=== PATIENT | female | born 1970 | race Caucasian/White ===

== ENCOUNTER 2017-03-18 17:11 | Emergency (ER) | payer SELFPAY ==
--- NOTE | 2017-03-18 17:44 | Emergency Department Record ---
History of Present Illness - General Chief Complaint: Difficulty Breathing Stated Complaint: RICHARD,NAUSEA Time Seen by Provider: 03/18/17 17:43 Source: Patient Mode of Arrival: Ambulatory Limitations: No limitations - History of Present Illness Initial Comments: The patient is here due to developing SOB about an hour ago. She was taking a nap and then woke up and suddenly felt short of breath. She also developed urinary urgency and pelvic cramping and also a feeling that her kidneys hurt. Those issues have resolved and her RICHARD is much improved. Additionally she did have anxiety during the episode but denied any CP or upper back pain. The patient does have a hx of anxiety and has had anxiety attacks similar to this in the past. She denies any recent cough, colds, fever, or infections. She also denies any CP with exertion or chest discomfort at rest. The patient's only cardiac risk factor is tobacco use. MD Complaint: Shortness of breath Onset/Timin -: Minutes(s) Consistency: Constant Improves With: Nothing Worsens With: Nothing Context: Anxiety, Recent URI Treatments Prior to Arrival: None - Related Data Home Oxygen Therapy: No Home Medications Medication Instructions Recorded Confirmed Last Taken Cholecalciferol (Vitamin D3) 5,000 unit PO DAILY 03/18/17 03/18/17 03/18/17 [Vitamin D3] Clonazepam [Clonazepam] 1 tab PO ASDIR 03/18/17 03/18/17 03/18/17 Duloxetine HCl [Cymbalta] 20 mg PO DAILY 03/18/17 03/18/17 03/18/17 Lisinopril/Hydrochlorothiazide 1 tab PO DAILY 03/18/17 03/18/17 03/18/17 [Lisinopril-Hctz 10-12.5 mg Tab] Ropinirole HCl [Requip] 0.5 mg PO DAILY 03/18/17 03/18/17 03/18/17 Allergies Allergy/AdvReac Type Severity Reaction Status Date / Time amoxicillin AdvReac NAUSEA Verified 03/18/17 17:33 Travel Screening - Travel/Exposure Within Last 30 Days Have you traveled within the last 30 days?: No - Travel/Exposure Within Last Year Have you traveled outside the [place] in the last year?: No - Additonal Travel Details Have you been exposed to anyone with a communicable illness?: No - Travel Symptoms Symptom Screening: None Review of Systems Constitutional: Denies: Chills, Fever Eyes: Denies: Eye discharge ENT: Denies: Congestion Respiratory: Denies: Cough, Hemoptysis Cardiovascular: Denies: Arrhythmia, Chest pain Past Medical History - SOCIAL HISTORY Smoking Status: Current every day smoker Alcohol Use: Occasional Drug Use: None - RESPIRATORY Hx Respiratory Disorders: No - CARDIOVASCULAR Hx Cardio Disorders: No - NEURO Hx Neuro Disorders: Yes Hx Headaches: Yes - GI Hx GI Disorders: No - Hx Genitourinary Disorders: No - ENDOCRINE Hx Endocrine Disorders: No - MUSCULOSKELETAL Hx Musculoskeletal Disorders: No - PSYCH Hx Psych Problems: Yes Hx Anxiety: Yes Hx Depression: Yes - HEMATOLOGY/ONCOLOGY Hx Hematology/Oncology Disorders: No Family Medical History Any Significant Family History?: Yes Hx Anxiety: Mother Hx Cancer: Father Hx Depression: Mother Hx Heart Disease: Mother, Grandparents Hx HTN: Grandparents Hx Stroke: Grandparents Physical Exam - General General Appearance: Alert, Oriented x3, Cooperative, No acute distress - Head Head exam: Atraumatic, Normocephalic, Normal inspection - Eye Eye exam: Normal appearance, PERRL, EOMI - ENT Throat exam: Normal inspection. negative: Tonsillar erythema, Tonsillar exudate - Neck Neck exam: Normal inspection, Full ROM. negative: Tenderness - Respiratory Respiratory exam: Normal lung sounds bilaterally. negative: Respiratory distress - Cardiovascular Cardiovascular Exam: Regular rate, Normal rhythm, Normal heart sounds - GI/Abdominal GI/Abdominal exam: Soft, Normal bowel sounds. negative: Tenderness - Extremities Extremities exam: Normal inspection, Full ROM, Normal capillary refill. negative: Tenderness - Back Back exam: Reports: Normal inspection. Denies: Paraspinal tenderness, Vertebral tenderness - Neurological Neurological exam: Alert, Normal gait, Oriented X3. negative: Abnormal gait, Motor sensory deficit - Psychiatric Psychiatric exam: negative: Agitated, Anxious Course Vital Signs 03/18/17 17:37 Temperature 97.8 F Pulse Rate 105 H Respiratory 18 Rate Blood Pressure 129/86 Pulse Ox 98 - Reevaluation(s) Reevaluation #1: The patient is doing a lot better at this time. She denies any CP or SOB or anxiety. She is resting comfortably and feels a lot better. 03/18/17 18:30 Reevaluation #2: The patient is doing well at this time. Her care will be turned over to Dr. Fernandez due to shift change. 03/18/17 18:50 Medical Decision Making - Data Complexity MDM Data: Labs Ordered and/or Reviewed, X-Ray Ordered and/or Reviewed, EKG Ordered and/or Reviewed - Lab Data Result diagrams: 03/18/17 18:00 03/18/17 18:00 - EKG Data -: EKG Interpreted by Me EKG: No Acute Changes, Normal EKG - Radiology Data Radiology results: Report reviewed (CXR: Neg Per Rad.) Disposition Forms: Patient Portal Access Quality - Quality Measures Quality Measures: N/A - Blood Pressure Screening View Details: Yes Does Patient Have Any of the Following: No Blood Pressure Classification: Pre-Hypertensive BP Reading Systolic Measurement: 129 Diastolic Measurement: 86 Screening for High Blood Pressure: < Pre-Hypertensive BP, F/U Documented > [ G8950] Pre-Hypertensive Follow-up Interventions: Referral to alternative/primary care provider.
[2017-03-18] MEDS ORDERED: LORAZEPAM 0.5 MG TABLET PO ONE (17:50)
[2017-03-18 18:08] LABS: BASO % 0.2 % (0-6); EOS % 1.7 % (0-6); GRAN % 66.7 % (47-80); HEMATOCRIT 40.8 % (35.0-47.0); HEMOGLOBIN 13.8 gm/dl (11.6-16.0); LYMPH % 26.6 % (16-45); MEAN CELL VOLUME 83.8 fl (81-97); MEAN CORPUSCULAR HEMOGLOBIN 28.3 pg (27-33); MEAN CORPUSCULAR HGB CONC 33.8 g/dl (32-36); MEAN PLATELET VOLUME 9.9 fl (7.4-10.4); MONO % 4.8 % (0-9); PLATELET COUNT 246 K/uL (130-400); RED BLOOD COUNT 4.87 M/uL (3.80-5.40); RED CELL DISTRIBUTION WIDTH 13.7 % (11.5-14.5); WHITE BLOOD COUNT W/O DIFF 12.9 K/uL (4.2-12.2)
[2017-03-18 18:20] LABS: BLOOD UREA NITROGEN 15 mg/dL (6-20); CREATININE 0.6 mg/dL (0.5-0.9); EST GLOMERULAR FILTRATION RATE > 60 mL/min
[2017-03-18 18:23] LABS: GLUCOSE,RANDOM 128 mg/dL (74-109)
[2017-03-18 18:25] LABS: URINE APPEARANCE SL CLOUDY; URINE BILIRUBIN NEGATIVE (NEGATIVE); URINE BLOOD LARGE (NEGATIVE); URINE COLOR YELLOW; URINE GLUCOSE (UA) NEGATIVE (NEGATIVE); URINE KETONE NEGATIVE (NEGATIVE); URINE LEUKOCYTE ESTERASE NEGATIVE (NEGATIVE); URINE NITRITE NEGATIVE (NEGATIVE); URINE PROTEIN NEGATIVE (NEGATIVE); URINE UROBILINOGEN 0.2 E.U./dL (0.20 - 1.00)
[2017-03-18 18:26] LABS: CREATINE PHOSPHOKINASE 73 U/L (26-192)
[2017-03-18 18:27] LABS: CKMB 1.8 ng/mL (<3.77)
[2017-03-18] MEDS ORDERED: POTASSIUM CHLORIDE 20 MEQ TABLET PO ONE (18:29)
[2017-03-18] MEDS ORDERED: 0.9 % SODIUM CHLORIDE 1,000 ML BAG IV ONE (18:34)
[2017-03-18 18:38] LABS: URINE BACTERIA NONE SEEN; URINE EPITHELIAL CELLS 0 - 2 (FEW); URINE WBC NONE SEEN (0-2/hpf)
--- NOTE | 2017-03-18 20:03 | Emergency Department Record ---
History of Present Illness - General Chief Complaint: Difficulty Breathing Stated Complaint: RICHARD,NAUSEA Time Seen by Provider: 03/18/17 17:43 Source: Patient Mode of Arrival: Ambulatory Limitations: No limitations - History of Present Illness Onset/Timin -: Minutes(s) Consistency: Constant Improves With: Nothing Worsens With: Nothing Context: Anxiety, Recent URI Treatments Prior to Arrival: None - Related Data Home Oxygen Therapy: No Home Medications Medication Instructions Recorded Confirmed Last Taken Cholecalciferol (Vitamin D3) 5,000 unit PO DAILY 03/18/17 03/18/17 03/18/17 [Vitamin D3] Clonazepam [Clonazepam] 1 tab PO ASDIR 03/18/17 03/18/17 03/18/17 Duloxetine HCl [Cymbalta] 20 mg PO DAILY 03/18/17 03/18/17 03/18/17 Lisinopril/Hydrochlorothiazide 1 tab PO DAILY 03/18/17 03/18/17 03/18/17 [Lisinopril-Hctz 10-12.5 mg Tab] Ropinirole HCl [Requip] 0.5 mg PO DAILY 03/18/17 03/18/17 03/18/17 Allergies Allergy/AdvReac Type Severity Reaction Status Date / Time amoxicillin AdvReac NAUSEA Verified 03/18/17 17:33 Travel Screening - Travel/Exposure Within Last 30 Days Have you traveled within the last 30 days?: No - Travel/Exposure Within Last Year Have you traveled outside the [place] in the last year?: No - Additonal Travel Details Have you been exposed to anyone with a communicable illness?: No - Travel Symptoms Symptom Screening: None Review of Systems Constitutional: Denies: Chills, Fever Eyes: Denies: Eye discharge ENT: Denies: Congestion Respiratory: Denies: Cough, Hemoptysis Cardiovascular: Denies: Arrhythmia, Chest pain Past Medical History - SOCIAL HISTORY Smoking Status: Current every day smoker Alcohol Use: Occasional Drug Use: None - RESPIRATORY Hx Respiratory Disorders: No - CARDIOVASCULAR Hx Cardio Disorders: No - NEURO Hx Neuro Disorders: Yes Hx Headaches: Yes - GI Hx GI Disorders: No - Hx Genitourinary Disorders: No - ENDOCRINE Hx Endocrine Disorders: No - MUSCULOSKELETAL Hx Musculoskeletal Disorders: No - PSYCH Hx Psych Problems: Yes Hx Anxiety: Yes Hx Depression: Yes - HEMATOLOGY/ONCOLOGY Hx Hematology/Oncology Disorders: No Family Medical History Any Significant Family History?: Yes Hx Anxiety: Mother Hx Cancer: Father Hx Depression: Mother Hx Heart Disease: Mother, Grandparents Hx HTN: Grandparents Hx Stroke: Grandparents Physical Exam - General Limitations: No limitations Course Vital Signs 03/18/17 03/18/17 03/18/17 17:37 18:30 19:04 Temperature 97.8 F Pulse Rate 105 H Pulse Rate [ 93 H 101 H Pulse Ox Probe] Respiratory 18 18 18 Rate Blood Pressure 129/86 Blood Pressure 109/64 120/79 [Left Arm] Pulse Ox 98 97 97 - Reevaluation(s) Reevaluation #1: 03/18/17 20:00 Labs reviewed, D-dimer (16.87) and WBC (12.9) are elevated, labs are otherwise grossly unremarkable for an acute process. CTA Chest: No PE, NO dissection, no acute process in the chest identified. Patient and her SO were updated on all results, patient reports that she is feeling much improved and denies any needs at this time. Plan for repeat Troponin was discussed with the patient and will draw at 3 hours. 03/18/17 20:01 Reevaluation #2: 03/18/17 21:30 Repeat Troponin appears negative for myocardial damage, and the patient appears stable for discharge at this time. Medical Decision Making - Lab Data Result diagrams: 03/18/17 18:00 03/18/17 18:00 Lab Results 03/18/17 03/18/17 03/18/17 Range/Units 17:49 18:00 18:00 WBC 12.9 H (4.2-12.2) K/uL RBC 4.87 (3.80-5.40) M/uL Hgb 13.8 (11.6-16.0) gm/dl Hct 40.8 (35.0-47.0) % MCV 83.8 (81-97) fl MCH 28.3 (27-33) pg MCHC 33.8 (32-36) g/dl RDW 13.7 (11.5-14.5) % Plt Count 246 (130-400) K/uL MPV 9.9 (7.4-10.4) fl Gran % 66.7 (47-80) % Lymphocytes % 26.6 (16-45) % Monocytes % 4.8 (0-9) % Eosinophils % 1.7 (0-6) % Basophils % 0.2 (0-6) % D-Dimer 16.87 H (0-0.59) mg/L FEU Sodium (136-145) mmol/L Potassium (3.4-4.5) mmol/L Chloride (98-107) mmol/L Carbon Dioxide (22-29) mmol/L Anion Gap (7-16) BUN (6-20) mg/dL Creatinine (0.5-0.9) mg/dL Estimated GFR mL/min Random Glucose (74-109) mg/dL Calcium (8.6-10.0) mg/dL Creatine Kinase (26-192) U/L CK-MB (CK-2) (<3.77) ng/mL Troponin T (0-0.010) ng/mL Urine Color Urine Appearance Urine pH (5.0-8.0) Ur Specific [place] (1.002-1.030) Urine Protein (NEGATIVE) Urine Glucose (UA) (NEGATIVE) Urine Ketones (NEGATIVE) Urine Blood (NEGATIVE) Urine Nitrite (NEGATIVE) Urine Bilirubin (NEGATIVE) Urine Urobilinogen (0.20 - 1.00) E.U./dL Ur Leukocyte Esterase (NEGATIVE) Urine RBC (NONE SEEN) Urine WBC (0-2/hpf) Ur Epithelial Cells (FEW) Urine Bacteria Urine HCG, Qual Negative (NEGATIVE) 03/18/17 03/18/17 Range/Units 18:00 18:22 WBC (4.2-12.2) K/uL RBC (3.80-5.40) M/uL Hgb (11.6-16.0) gm/dl Hct (35.0-47.0) % MCV (81-97) fl MCH (27-33) pg MCHC (32-36) g/dl RDW (11.5-14.5) % Plt Count (130-400) K/uL MPV (7.4-10.4) fl Gran % (47-80) % Lymphocytes % (16-45) % Monocytes % (0-9) % Eosinophils % (0-6) % Basophils % (0-6) % D-Dimer (0-0.59) mg/L FEU Sodium 139 (136-145) mmol/L Potassium 3.3 L (3.4-4.5) mmol/L Chloride 100 (98-107) mmol/L Carbon Dioxide 25.0 (22-29) mmol/L Anion Gap 14.0 (7-16) BUN 15 (6-20) mg/dL Creatinine 0.6 (0.5-0.9) mg/dL Estimated GFR > 60 mL/min Random Glucose 128 H (74-109) mg/dL Calcium 9.3 (8.6-10.0) mg/dL Creatine Kinase 73 (26-192) U/L CK-MB (CK-2) 1.8 (<3.77) ng/mL Troponin T < 0.010 (0-0.010) ng/mL Urine Color Yellow Urine Appearance Sl cloudy Urine pH 5.5 (5.0-8.0) Ur Specific [place] 1.010 (1.002-1.030) Urine Protein Negative (NEGATIVE) Urine Glucose (UA) Negative (NEGATIVE) Urine Ketones Negative (NEGATIVE) Urine Blood Large H (NEGATIVE) Urine Nitrite Negative (NEGATIVE) Urine Bilirubin Negative (NEGATIVE) Urine Urobilinogen 0.2 (0.20 - 1.00) E.U./dL Ur Leukocyte Esterase Negative (NEGATIVE) Urine RBC 7 - 10 (NONE SEEN) Urine WBC None seen (0-2/hpf) Ur Epithelial Cells 0 - 2 (FEW) Urine Bacteria None seen Urine HCG, Qual (NEGATIVE) Disposition Disposition: Discharge Clinical Impression: Chest pain Qualifiers: Chest pain type: unspecified Qualified Code(s): R07.9 - Chest pain, unspecified Disposition: Home, Self-Care Condition: (2) Stable Instructions: Chest Pain (ED) Additional Instructions: Return to ED if your symptoms worsen or if you have any concerns. Follow-up with your family doctor in 1-3 days as directed. Forms: Patient Portal Access Time of Disposition: 21:31 Quality - Quality Measures Quality Measures: N/A - Blood Pressure Screening Does Patient Have Any of the Following: No Blood Pressure Classification: Pre-Hypertensive BP Reading Systolic Measurement: 129 Diastolic Measurement: 86 Screening for High Blood Pressure: < Pre-Hypertensive BP, F/U Documented > [ G8950] Pre-Hypertensive Follow-up Interventions: Referral to alternative/primary care provider.
[2017-03-18] MEDS ORDERED: MAGNESIUM HYDROXIDE/AL HYDROX 30 ML, LIDOCAINE VISC 2% 200 MG PO ONE ×2 (20:14)
[2017-03-18] MEDS ORDERED: HYOSCYAMINE SULFATE ODT 0.125 MG TAB.SUBL SL ONE (21:32)
--- NOTE | 2017-03-19 10:35 | RADIOLOGY REPORT ---
EXAM: CHEST, TWO VIEWS HISTORY: PATIENT HAS COUGH TIMES ONE DAY. TECHNIQUE: Two views of the chest are provided without comparison studies. FINDINGS: The cardiomediastinal silhouette is within normal limits for size and contour. The jana appear unremarkable. There is no radiographic evidence of a focal infiltrate, pleural effusion, or pneumothorax. IMPRESSION: NO RADIOGRAPHIC EVIDENCE OF AN ACUTE INTRATHORACIC PROCESS. JOB NUMBER: [id number] MTDD
--- NOTE | 2017-03-19 10:48 | CT ANGIOGRAM REPORT ---
EXAM: CTA OF THE CHEST HISTORY: PATIENT HAS SHORTNESS OF BREATH AND ELEVATED D-DIMER. TECHNIQUE: Serial axial CTA scan of the chest was performed at 2.5 mm intervals from the thoracic inlet to the dome of the diaphragm following the intravenous administration of 75 ml of Omnipaque 350. Comparison: CT scan of the neck dated 01/10/16 is provided. FINDINGS: The thoracic inlet is unremarkable. The lung windows demonstrate no CT evidence of a focal infiltrate or pleural effusion. Linear subsegmental atelectasis and/or scarring within the left lateral lower lobe is noted. The visualized heart size and contour is within normal limits. The thoracic aorta demonstrates normal contour, caliber, and flow. There is no CTA evidence of a filling defect within the primary and secondary pulmonary vascular tree to suggest a pulmonary embolus. The chest wall is unremarkable. There is no CTA evidence of mediastinal, hilar, or axillary lymphadenopathy. Axial images through the upper abdomen demonstrate the visualized liver, pancreas, and adrenal glands to be unremarkable. Bone windows demonstrate no CTA evidence of a fracture or dislocation of the visualized osseous structures of the chest. IMPRESSION: NO CTA EVIDENCE OF AN ACUTE INTRATHORACIC PROCESS. NO CTA EVIDENCE OF A PULMONARY EMBOLUS. JOB NUMBER: [id number] MTDD
== END 2017-03-18 21:51 | disposition home or self-care (01) ==
LOC: ER 17:11
DX: R07.9 Chest pain, unspecified (principal); R06.02 Shortness of breath; R11.0 Nausea; F17.210 Nicotine dependence, cigarettes, uncomplicated
CPT/HCPCS: 99284 ×2; 82550; 85025; 82553; 80048; 81001; 81025; 84484; 85379; 71020; 71275; 93005; 93010; Q9967; J1980; J7030

== ENCOUNTER 2017-03-19 04:02 | Emergency (ER) | payer SELFPAY ==
--- NOTE | 2017-03-19 04:27 | Emergency Department Record ---
History of Present Illness - General Chief Complaint: Abdominal Pain Stated Complaint: BLOODY STOOLS Time Seen by Provider: 03/19/17 04:14 Source: Patient Mode of Arrival: Ambulatory Limitations: No limitations - History of Present Illness Initial Comments: 47 yo female returns to ED for evaluation of upper abdominal pain that began after ingesting oral potasssium while she was being evaluated for chest pain 8 hours ago. Patient reports intermittent blood in the stool as well. Patient denies vomiting symptoms but also reports intermittent blood in the stool as well. Patient denies health problems at her baseline. MD Complaint: Abdominal pain Onset/Timin -: Hour(s) Location: Diffuse Radiation: None Migration to: No migration Severity: Moderate Quality: Aching Consistency: Constant Improves With: Nothing Worsens With: Nothing - Related Data Patient : No Previous Rx's Medication Instructions Recorded Ciprofloxacin HCl [Cipro] 500 mg PO Q12HR #19 tablet 03/19/17 Metronidazole [Flagyl] 500 mg PO TID #29 tablet 03/19/17 Allergies Allergy/AdvReac Type Severity Reaction Status Date / Time amoxicillin AdvReac NAUSEA Verified 03/18/17 17:33 Travel Screening - Travel/Exposure Within Last 30 Days Have you traveled within the last 30 days?: No Review of Systems Constitutional: Denies: Chills, Fever, Malaise, Night sweats Eyes: Denies: Eye discharge, Eye pain ENT: Denies: Congestion, Ear pain, Epistaxis Respiratory: Denies: Cough, Dyspnea, Hemoptysis Cardiovascular: Denies: Chest pain, Dyspnea on exertion Endocrine: Denies: Fatigue, Heat or cold intolerance Gastrointestinal: Reports: Abdominal pain. Denies: Constipation, Nausea, Vomiting Genitourinary: Denies: Incontinence, Retention Musculoskeletal: Denies: Arthralgia, Back pain, Gout, Joint swelling Skin: Denies: Bruising, Change in color Neurological: Denies: Abnormal gait, Confusion, Headache, Seizure Psychiatric: Denies: Anxiety Hematological/Lymphatic: Denies: Anemia, Blood Clots Past Medical History - SOCIAL HISTORY Smoking Status: Current every day smoker Alcohol Use: None Drug Use: None - RESPIRATORY Hx Respiratory Disorders: No - CARDIOVASCULAR Hx Cardio Disorders: No - NEURO Hx Neuro Disorders: Yes Hx Headaches: Yes - GI Hx GI Disorders: No - Hx Genitourinary Disorders: No - ENDOCRINE Hx Endocrine Disorders: No - MUSCULOSKELETAL Hx Musculoskeletal Disorders: No - PSYCH Hx Psych Problems: Yes Hx Anxiety: Yes Hx Depression: Yes - HEMATOLOGY/ONCOLOGY Hx Hematology/Oncology Disorders: No Family Medical History Any Significant Family History?: Yes Hx Anxiety: Mother Hx Cancer: Father Hx Depression: Mother Hx Heart Disease: Mother, Grandparents Hx HTN: Grandparents Hx Stroke: Grandparents Physical Exam - General General Appearance: Alert, Oriented x3, Cooperative, Mild distress Limitations: No limitations - Head Head exam: Atraumatic, Normocephalic, Normal inspection Head exam detail: negative: Abrasion, Contusion, Myles's sign, General tenderness, Hematoma, Laceration - Eye Eye exam: Normal appearance. negative: Conjunctival injection, Periorbital swelling, Periorbital tenderness, Scleral icterus - ENT Ear exam: negative: Auricular hematoma, Auricular trauma Nasal Exam: negative: Active bleeding, Discharge, Dried blood, Foreign body Mouth exam: negative: Drooling, Laceration, Muffled voice, Tongue elevation - Neck Neck exam: Normal inspection. negative: Meningismus, Tenderness - Respiratory Respiratory exam: Normal lung sounds bilaterally. negative: Rales, Respiratory distress, Rhonchi, Stridor - Cardiovascular Cardiovascular Exam: Regular rate, Normal rhythm, Normal heart sounds - GI/Abdominal GI/Abdominal exam: Soft, Tenderness (Moderate amout TTP epigastric region, no rebound or guarding are present on examination.). negative: Rebound, Rigid - Rectal Rectal exam: Deferred - exam: Deferred - Extremities Extremities exam: Normal inspection. negative: Calf tenderness, Pedal edema, Tenderness - Back Back exam: Denies: CVA tenderness (R), CVA tenderness (L) - Neurological Neurological exam: Alert, Normal gait, Oriented X3 - Psychiatric Psychiatric exam: Normal affect, Normal mood - Skin Skin exam: Normal color. negative: Abrasion Type of lesion: negative: abrasion Course Vital Signs 03/19/17 04:08 Temperature 98.4 F Pulse Rate [ 103 H Pulse Ox Probe] Respiratory 20 Rate Blood Pressure 141/87 [Left Arm] Pulse Ox 96 - Reevaluation(s) Reevaluation #1: 03/19/17 04:34 Patient returns following chest pain evaluation and CTA of the chest with worsening epigastric abdominal pain symptoms and possible blood in the stool. Lactic acid ordered to exclude mesenteric ischemia given CTA cannot be performed following CTA chest earlier in the evening. Will administer Morphine/ zofran for her pain symptoms. Reevaluation #2: 03/19/17 05:20 Labs reviewed, WBC 12.6, Hgb 13.2 (previous 13.8), lactic acid and lipase specifically are normal. Stool occult positive. CT Abdomen and Pelvis: Focal area of colitis to the descending colon c/w diverticulitis. Patient was reassessed and updated on all results, reports that she is feeling better. I discussed admission/observation for diverticulitis treatment as the patient has been to the ED twice in 12 hours, patient declined stating that she is feeling better and would prefer to go home. Will administer Cipro and Flagyl and discharge home. Medical Decision Making - Lab Data Result diagrams: 03/19/17 04:22 03/19/17 04:22 Disposition Disposition: Discharge Clinical Impression: Diverticulitis Disposition: Home, Self-Care Condition: (2) Stable Instructions: Diverticulitis (ED), Rectal Bleeding (ED) Additional Instructions: Return to ED if your symptoms worsen or if you have any concerns. Cipro and Flagyl as directed. Follow-up with your family doctor in 3-5 days directed. Prescriptions: Ciprofloxacin HCl [Cipro] 500 mg PO Q12HR #19 tablet Metronidazole [Flagyl] 500 mg PO TID #29 tablet Forms: Patient Portal Access Time of Disposition: 05:31 Quality - Quality Measures Quality Measures: N/A - Blood Pressure Screening Does Patient Have Any of the Following: No Blood Pressure Classification: Pre-Hypertensive BP Reading Systolic Measurement: 117 Diastolic Measurement: 84 Screening for High Blood Pressure: < Pre-Hypertensive BP, F/U Documented > [ G8950] Pre-Hypertensive Follow-up Interventions: Referral to alternative/primary care provider.
[2017-03-19 04:28] LABS: BASO % 0.2 % (0-6); EOS % 0.8 % (0-6); GRAN % 75.2 % (47-80); HEMATOCRIT 38.9 % (35.0-47.0); HEMOGLOBIN 13.2 gm/dl (11.6-16.0); LYMPH % 17.5 % (16-45); MEAN CELL VOLUME 83.8 fl (81-97); MEAN CORPUSCULAR HEMOGLOBIN 28.4 pg (27-33); MEAN CORPUSCULAR HGB CONC 33.9 g/dl (32-36); MEAN PLATELET VOLUME 9.8 fl (7.4-10.4); MONO % 6.3 % (0-9); PLATELET COUNT 239 K/uL (130-400); RED BLOOD COUNT 4.64 M/uL (3.80-5.40); RED CELL DISTRIBUTION WIDTH 13.8 % (11.5-14.5); WHITE BLOOD COUNT W/O DIFF 12.6 K/uL (4.2-12.2)
[2017-03-19] MEDS: ONDANSETRON HCL IV 4 MG/2 ML VIAL IVP ONE (04:35)
[2017-03-19] MEDS: MORPHINE SULFATE 5 MG/ML PFS IVP ONE (04:35)
[2017-03-19 04:41] LABS: BLOOD UREA NITROGEN 12 mg/dL (6-20); CREATININE 0.5 mg/dL (0.5-0.9); EST GLOMERULAR FILTRATION RATE > 60 mL/min
[2017-03-19 04:42] LABS: TOTAL PROTEIN 6.8 g/dL (6.6-8.7)
[2017-03-19 04:44] LABS: GLUCOSE,RANDOM 118 mg/dL (74-109)
[2017-03-19 04:46] LABS: ALT/SGPT 9 U/L (<33); AST/SGOT 13 U/L (10.0-35.0)
[2017-03-19 04:47] LABS: ALB/GLOB RATIO 1.5 (1.1-1.8); ALBUMIN 4.1 g/dL (4.0-5.0); ALKALINE PHOSPHATASE 90 U/L (35-104); LIPASE 17 U/L (13-60)
[2017-03-19] MEDS: METRONIDAZOLE 250 MG TABLET PO ONE (05:51)
[2017-03-19] MEDS: CIPROFLOXACIN HCL 500 MG TABLET PO ONE (05:51)
--- NOTE | 2017-03-19 11:41 | CT SCAN REPORT ---
EXAM: EMERGENCY CT OF THE ABDOMEN AND PELVIS WITHOUT CONTRAST HISTORY: EPIGASTRIC ABDOMINAL PAIN WITH BLOODY STOOLS. TECHNIQUE: Axial CT scan of the abdomen and pelvis was performed without oral or IV contrast. Note, however, is made that the patient did have a CTA of the chest earlier the same day. A preliminary report was provided by [facility]. Comparison: No prior abdomen or pelvis CT with which to compare. FINDINGS: Surgical clips are seen in the gallbladder fossa consistent with prior cholecystectomy. There is faint residual contrast media present in the urinary tract apparently related to the CTA performed earlier today. No hydronephrosis or hydroureter on either side with no definite ureteral calculus seen on either side. The bladder has a somewhat thick walled appearance, but this may simply be due to incomplete distention. Evaluation of the bowel and viscera is limited by the lack of oral and IV contrast. Given this limitation, no definite hepatic, splenic, adrenal, pancreatic, or renal mass identified. There is thickening of the wall of the majority of the descending colon. Slight blurring of the adjacent pericolonic adipose tissue as well and findings are consistent with a left sided colitis. There are a couple diverticula in the adjacent sigmoid colon although no diffuse thickening of the sigmoid colon wall itself identified and the length of involvement in the descending colon appears somewhat atypical for diverticulitis. I believe the appendix is visualized as a normal caliber structure with no appendicitis evident. Minor linear fibrosis or discoid atelectasis in the left base laterally. No free intraperitoneal air or free intraperitoneal fluid identified. 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 Some degenerative change at the pubic symphysis. The uterine fundus appears somewhat prominent in size measuring about 8.3 cm in transverse x 7.5 cm in AP diameter. No obvious focal uterine mass identified. If clinically warranted, the uterus can be more fully evaluated with a follow- up pelvic ultrasound. IMPRESSION: 1. FINDINGS CONSISTENT WITH A COLITIS INVOLVING PRIMARILY THE DESCENDING COLON OF UNCERTAIN ETIOLOGY. MINOR DIVERTICULOSIS IN THE ADJACENT SIGMOID COLON, BUT FINDINGS APPEAR ATYPICAL FOR DIVERTICULITIS. 2. FAINT RESIDUAL CONTRAST MEDIA IN THE URINARY TRACT RELATED TO THE CTA OF THE CHEST PERFORMED EARLIER TODAY. 3. SOMEWHAT THICK WALLED APPEARANCE OF THE URINARY BLADDER IS NONSPECIFIC ALTHOUGH MAY SIMPLY BE DUE TO INCOMPLETE DISTENTION. 4. POSTOP CHOLECYSTECTOMY. 5. SOMEWHAT GENEROUS SIZED UTERINE FUNDUS ALTHOUGH NO DISCREET FOCAL UTERINE MASS IDENTIFIED. JOB NUMBER: [id number] MTDD
== END 2017-03-19 05:52 | disposition home or self-care (01) ==
LOC: ER 04:02
DX: K57.93 Diverticulitis of intestine, part unspecified, without perforation or abscess with bleeding (principal)
CPT/HCPCS: 99284 ×2; 96374; 96375; 83605; 83690; 85025; 80053; 82272; 74176; J2405; J2270

== ENCOUNTER 2017-04-05 17:52 | Emergency (ER) | payer SELFPAY ==
[2017-04-05] MEDS ORDERED: HYDROCODONE/APAP 5/325MG TABLET PO ONE (18:00)
[2017-04-05] MEDS ORDERED: CLINDAMYCIN 150 MG CAP PO ONE (18:01)
--- NOTE | 2017-04-05 18:07 | Emergency Department Record ---
History of Present Illness - General Chief complaint: Dental Stated complaint: TOOTH ABCESS Time Seen by Provider: 04/05/17 17:54 Source: Patient, Family Mode of Arrival: Ambulatory Limitations: No limitations - History of Present Illness Initial comments: 47 yo female presents with 2 days of right lower jaw dental pain. She has some mild swelling as well. No fevers. No neck pain or swelling. No fevers. She has had prior filling of the right lower. No trauma. No problem with swallowing. No current dentist. MD complaint: Tooth pain -: Days(s) (2) Location: Tooth # Improves with: None Worsens with: Movement (palpation) Context- Dental: History of dental caries Associated Symptoms: Toothache - Related Data Previous Rx's Medication Instructions Recorded Clindamycin HCl 300 mg PO QID #28 capsule 04/05/17 Hydrocodone/Acetaminophen [[place] 1 each PO Q8H #15 tablet 04/05/17 7.5-325 Tablet] Allergies Allergy/AdvReac Type Severity Reaction Status Date / Time amoxicillin AdvReac NAUSEA Verified 04/05/17 17:54 Review of Systems Constitutional: Denies: Chills, Fever, Malaise, Weakness Eyes: Denies: Eye discharge ENT: Reports: As per HPI, Dental pain. Denies: Congestion, Throat pain Respiratory: Denies: Cough, Dyspnea, Hemoptysis, Stridor, Wheezes Cardiovascular: Denies: Chest pain, Syncope Endocrine: Denies: Fatigue Gastrointestinal: Denies: Abdominal pain, Diarrhea, Nausea, Vomiting Genitourinary: Denies: Dysuria, Urgency Musculoskeletal: Denies: Arthralgia, Back pain, Joint swelling, Myalgia Skin: Denies: Bruising, Change in color, Rash Neurological: Denies: Confusion, Headache, Numbness, Weakness Psychiatric: Denies: Anxiety Hematological/Lymphatic: Denies: Anemia, Blood Clots, Easy bleeding, Easy bruising, Swollen glands Past Medical History - SOCIAL HISTORY Smoking Status: Current every day smoker Drug Use: None - RESPIRATORY Hx Respiratory Disorders: No - CARDIOVASCULAR Hx Cardio Disorders: No - NEURO Hx Neuro Disorders: Yes Hx Headaches: Yes - GI Hx GI Disorders: No - Hx Genitourinary Disorders: No - ENDOCRINE Hx Endocrine Disorders: No - MUSCULOSKELETAL Hx Musculoskeletal Disorders: No - PSYCH Hx Psych Problems: Yes Hx Anxiety: Yes Hx Depression: Yes - HEMATOLOGY/ONCOLOGY Hx Hematology/Oncology Disorders: No Family Medical History Hx Anxiety: Mother Hx Cancer: Father Hx Depression: Mother Hx Heart Disease: Mother, Grandparents Hx HTN: Grandparents Hx Stroke: Grandparents Physical Exam - General General Appearance: Alert, Oriented x3, Cooperative, No acute distress Limitations: No limitations - Head Head exam: Atraumatic, Normocephalic, Normal inspection - Eye Eye exam: Normal appearance. negative: Conjunctival injection, Periorbital swelling, Periorbital tenderness, Scleral icterus - ENT ENT exam: Normal exam, Mucous membranes moist Ear exam: Normal external inspection Nasal Exam: Normal inspection Mouth exam: Normal external inspection Teeth exam: Dental caries, Dental tenderness # (30), Other (No abscess at this time). negative: Fractured tooth #, Gingival enlargement Throat exam: Normal inspection. negative: Tonsillar erythema, Tonsillomegaly, R peritonsillar mass, L peritonsillar mass - Neck Neck exam: Normal inspection, Full ROM, Other (supple neck). negative: Lymphadenopathy, Tenderness - Respiratory Respiratory exam: Normal lung sounds bilaterally. negative: Respiratory distress - Cardiovascular Cardiovascular Exam: Regular rate, Normal rhythm, Normal heart sounds - Rectal Rectal exam: Deferred - exam: Deferred Course - Reevaluation(s) Reevaluation #1: 04/05/17 18:06 The patient has localized tenderness and mild swelling No visible abscess to drain Rx provided for Clindamycin and [place] She will be provided the list of local dentists 04/05/17 18:44 The heart rate remains elevated on recheck She states she feels dehydrated with little to drink last 2 days I recommend IVF, analgesia and IV antibiotic Medical Decision Making - Lab Data Result diagrams: 04/05/17 19:10 04/05/17 19:10 Disposition Disposition: Discharge Clinical Impression: Dental abscess Disposition: Home, Self-Care Condition: (1) Good Instructions: Dental Abscess (ED) Additional Instructions: Return or be seen if worse in the next 24 hours Take the antibiotics as directed Call the numbers provided for a dentist Prescriptions: Clindamycin HCl 300 mg PO QID #28 capsule Hydrocodone/Acetaminophen [[place] 7.5-325 Tablet] 1 each PO Q8H #15 tablet Forms: Patient Portal Access Time of Disposition: 18:04 Quality - Quality Measures Quality Measures: N/A - Blood Pressure Screening Does Patient Have Any of the Following: No Blood Pressure Classification: Hypertensive Reading Systolic Measurement: 145 Diastolic Measurement: 95 Screening for High Blood Pressure: < Pre-Hypertensive BP, F/U Documented > [ G8950] Pre-Hypertensive Follow-up Interventions: Referral to alternative/primary care provider.
[2017-04-05] MEDS ORDERED: CLINDAMYCIN 600MG/50ML PREMIX 600 MG/50 ML BAG IVPB ONE (18:43)
[2017-04-05] MEDS ORDERED: MORPHINE SULFATE 5 MG/ML PFS IVP ONE (18:43)
[2017-04-05] MEDS ORDERED: KETOROLAC 30 MG/ML VIAL IVP ONE (18:43)
[2017-04-05] MEDS ORDERED: 0.9 % SODIUM CHLORIDE 1,000 ML BAG IV ONE (18:43)
[2017-04-05] MEDS ORDERED: CEFTRIAXONE SODIUM 2 GM in 0.9 % SODIUM CHLORIDE 100ML 100 ML IVPB ONE (18:45)
[2017-04-05 19:16] LABS: BASO % 0.2 % (0-6); EOS % 0.3 % (0-6); HEMATOCRIT 38.6 % (35.0-47.0); HEMOGLOBIN 13.1 gm/dl (11.6-16.0); LYMPH % 13.4 % (16-45); MEAN CELL VOLUME 83.7 fl (81-97); MEAN CORPUSCULAR HEMOGLOBIN 28.4 pg (27-33); MEAN CORPUSCULAR HGB CONC 33.9 g/dl (32-36); MEAN PLATELET VOLUME 9.8 fl (7.4-10.4); MONO % 7.1 % (0-9); PLATELET COUNT 232 K/uL (130-400); RED BLOOD COUNT 4.61 M/uL (3.80-5.40); RED CELL DISTRIBUTION WIDTH 13.6 % (11.5-14.5)
[2017-04-05 19:29] LABS: BLOOD UREA NITROGEN 8 mg/dL (6-20); CREATININE 0.5 mg/dL (0.5-0.9); EST GLOMERULAR FILTRATION RATE > 60 mL/min
[2017-04-05 19:31] LABS: GLUCOSE,RANDOM 106 mg/dL (74-109)
== END 2017-04-05 20:00 | disposition home or self-care (01) ==
LOC: ER 17:52
DX: K04.7 Periapical abscess without sinus (principal); F17.210 Nicotine dependence, cigarettes, uncomplicated
CPT/HCPCS: 99284 ×2; 96365; 96375; 85025; 80048; J1885; J2270; J7030

== ENCOUNTER 2018-06-16 18:03 | Emergency (ER) | payer BC, OTHER ==
--- NOTE | 2018-06-16 18:17 | Emergency Department Record ---
History of Present Illness - General Chief Complaint: Fall Injury Stated Complaint: FELL DOWN STEP YESTERDAY/ HEADACHE,BACK PAIN Time Seen by Provider: 06/16/18 18:11 Source: Patient, Family Mode of Arrival: Ambulatory Limitations: No limitations - History of Present Illness Initial Comments: 48 yo female presents with pain after a fall downs stairs that were carpeted. The fall occurred yesterday. She was carrying a small dog and a cordless drill at the time. She hit her head. No LOC but she saw stars. She still has a headache, feels foggy with concentration, and mild nausea and dizziness. She has has neck pain. No weakness, numbness or tingling. No chest or abdominal pain. She has some soreness in her back. She has some abrasions on her elbows. MD Complaint: Fall -: Days(s) (1) Fall From: Down stairs (#) When Fall Occurred: # Days [employer] (1) Fall Witnessed: No Place Fall Occurred: Home Loss of Consciousness: None Prolonged Down Time?: No Symptoms Prior to Fall: None Location: Head, Neck, Back Location - Extremities: Left: Elbow, Right: Elbow Severity: Moderate Quality: Aching Associated Symptoms: Neck pain - Leonidas Coma Scale Eye Response: (4) Open spontaneously Motor Response: (3) Flexion to pain Verbal Response: (5) Oriented Leonidas Total: 12 - Related Data Home Medications Medication Instructions Recorded Confirmed Last Taken Levothyroxine Sodium [Synthroid] 25 mcg PO DAILY 06/16/18 06/16/18 1 Day Ago ~06/15/18 Temazepam 15 mg PO QHS 06/16/18 06/16/18 1 Day Ago ~06/15/18 Previous Rx's Medication Instructions Recorded Ondansetron [Zofran Odt] 4 mg PO Q8H #12 tab.rapdis 06/16/18 Silver Sulfadiazine [Ssd] 1 apply TP TID #25 gm 06/16/18 Allergies Allergy/AdvReac Type Severity Reaction Status Date / Time amoxicillin AdvReac NAUSEA Verified 06/16/18 18:17 Review of Systems Constitutional: Denies: Chills, Fever, Malaise, Weakness Eyes: Denies: Eye discharge, Eye pain, Photophobia, Vision change ENT: Denies: Congestion, Dental pain, Ear pain, Epistaxis Respiratory: Denies: Cough, Dyspnea Cardiovascular: Denies: Chest pain, Dyspnea on exertion, Edema, Palpitations, Syncope Endocrine: Denies: Fatigue Gastrointestinal: Denies: Abdominal pain, Diarrhea, Nausea, Vomiting Genitourinary: Denies: Dysuria, Hematuria, Urgency Musculoskeletal: Reports: Arthralgia, Back pain, Myalgia, Neck pain Skin: Reports: Bruising Neurological: Reports: Headache, Vertigo. Denies: Abnormal gait, Confusion, Numbness, Paresthesias, Seizure, Tingling, Tremors, Weakness Psychiatric: Denies: Anxiety Hematological/Lymphatic: Denies: Blood Clots, Easy bleeding, Easy bruising Past Medical History - SOCIAL HISTORY Smoking Status: Current every day smoker Drug Use: None - RESPIRATORY Hx Respiratory Disorders: No - CARDIOVASCULAR Hx Cardio Disorders: No - NEURO Hx Neuro Disorders: Yes Hx Headaches: Yes - GI Hx GI Disorders: No - Hx Genitourinary Disorders: No - ENDOCRINE Hx Endocrine Disorders: No - MUSCULOSKELETAL Hx Musculoskeletal Disorders: No - PSYCH Hx Psych Problems: Yes Hx Anxiety: Yes Hx Depression: Yes - HEMATOLOGY/ONCOLOGY Hx Hematology/Oncology Disorders: No Family Medical History Hx Anxiety: Mother Hx Cancer: Father Hx Depression: Mother Hx Heart Disease: Mother, Grandparents Hx HTN: Grandparents Hx Stroke: Grandparents Physical Exam - General General Appearance: Alert, Oriented x3, Cooperative, No acute distress Limitations: No limitations - Head Head exam: Atraumatic, Normocephalic, Normal inspection Head exam detail: negative: Abrasion, Contusion, Hematoma - Eye Eye exam: Normal appearance, PERRL, EOMI. negative: Conjunctival injection, Nystagmus, Scleral icterus - ENT ENT exam: Normal exam, Mucous membranes moist, Normal orophraynx, TM's normal bilaterally Ear exam: Normal external inspection Nasal Exam: Normal inspection Mouth exam: Normal external inspection Teeth exam: Normal inspection Throat exam: Normal inspection - Neck Neck exam: Normal inspection, Full ROM, Tenderness - Respiratory Respiratory exam: Normal lung sounds bilaterally. negative: Decreased breath sounds, Prolonged expiratory, Respiratory distress, Rhonchi, Stridor, Wheezes - Cardiovascular Cardiovascular Exam: Regular rate, Normal rhythm, Normal heart sounds - GI/Abdominal GI/Abdominal exam: Soft. negative: Distended, Guarding, Hernia, Tenderness - Rectal Rectal exam: Deferred - exam: Deferred - Extremities Extremities exam: Full ROM, Normal capillary refill. negative: Normal inspection (abrasions both elbows), Joint swelling, Pedal edema Image of Full Body: 1 - tender midline and paraspinal, normal inspection 2 - abrasion 3 - abrasion 4 - mild diffuse tenderness midline and paraspinal - Back Back exam: Reports: Normal inspection, Paraspinal tenderness, Tenderness - Neurological Neurological exam: Alert, CN II-XII intact, Normal gait, Oriented X3. negative : Abnormal gait, Altered, Motor sensory deficit - Psychiatric Psychiatric exam: Normal affect, Normal mood. negative: Agitated, Anxious - Skin Skin exam: Abrasion Type of lesion: abrasion Distribution of rash: RUE, LUE Course - Reevaluation(s) Reevaluation #1: The patient declined any pain medication when asked initially The HCT is negative for any acute process. Prior surgical changes stable. 06/16/18 18:59 The Lumbar spine is negative for any acute injury. Prior mild anterior wedging at T12 stable from prior study. 06/16/18 19:01 06/16/18 19:[address] is negative for any acute injury We discussed the results of the tests and questions were answered at the time of discharge. The patient is comfortable with DC. We discussed concussion symptoms and home care. We discussed at length reasons to immediately return to the ED as well as close follow up. The patient will call the PCP for close follow up of this ED visit to review this visit and the tests performed 06/16/18 19:07 Disposition Disposition: Discharge Clinical Impression: Concussion, Cervical strain, acute Disposition: Home, Self-Care Condition: (1) Good Instructions: Concussion (ED) Additional Instructions: Rest and avoid over activity or exertion Return for a recheck if you have any new or worsening symptoms Call your doctor for a recheck as well to review your tests and recheck your exam for any continued pain Prescriptions: Ondansetron [Zofran Odt] 4 mg PO Q8H #12 tab.rapdis Silver Sulfadiazine [Ssd] 1 apply TP TID #25 gm Forms: Patient Portal Access Time of Disposition: 19:07 Quality - Quality Measures Quality Measures: N/A, Blunt Head Trauma (>2yr) - Leonidas Coma Scale Eye Response: (4) Open spontaneously Motor Response: (6) Obeys commands Verbal Response: (5) Oriented Leonidas Total: 15 - Blunt Head Trauma - Adult Quality Measure: Measure #415: Utilization of CT for Minor Blunt Head Trauma ICD10 Codes Entered: Yes Was CT ordered: Yes Does Patient Have Any of the Following: No Exclusions Patient Presented Within 24 Hours of Injury: No Breaks Score: [address] for Minor Blunt Head Trauma: Not Eligible For Measure Additional Inclusion Criteria: More than 24hrs (OR) GCS not 15 (OR) CT not ordered. Not Eligible Reason: Injury Greater Than 24 Hours Ago - Blood Pressure Screening Does Patient Have Any of the Following: No Blood Pressure Classification: Hypertensive Reading Systolic Measurement: 131 Diastolic Measurement: 90 Screening for High Blood Pressure: < Pre-Hypertensive BP, F/U Documented > [ G8950] Pre-Hypertensive Follow-up Interventions: Referral to alternative/primary care provider.
[2018-06-16] MEDS: ONDANSETRON 4 MG ODT TABLET SL ONE (19:21)
--- NOTE | 2018-06-18 09:51 | CT SCAN REPORT ---
EXAM: CT OF THE BRAIN WITHOUT CONTRAST HISTORY: HEAD AND NECK PAIN POST FALL. TECHNIQUE: Routine noncontrast CT of the brain was obtained. Comparison: CT of the brain without contrast dated 07/06/12. FINDINGS: Extensive post surgical changes redemonstrated involving the right orbit and right frontal bone, stable. No convincing acute skull fracture. The ventricles and subarachnoid spaces are stable in size. No new area of abnormally increased or decreased attenuation is noted throughout the brain substance. No new abnormal extraaxial fluid collection is seen. The visualized paranasal sinuses and mastoid air cells are clear. IMPRESSION: 1. NO CT EVIDENCE OF ACUTE INTRACRANIAL ABNORMALITY, MASS, NOR ACUTE SKULL FRACTURE. 2. EXTENSIVE POST SURGICAL CHANGES INVOLVING THE RIGHT ORBIT AND RIGHT FRONTAL BONE REDEMONSTRATED. JOB NUMBER: [id number] [facility]
--- NOTE | 2018-06-18 09:57 | RADIOLOGY REPORT ---
EXAM: LUMBAR SPINE WITH OBLIQUE VIEWS HISTORY: BACK PAIN POST FALL DOWN STAIRS. TECHNIQUE: AP, lateral and both oblique views of the lumbar spine are obtained as well as a spot lateral view of the lumbosacral junction. Comparison: CT of the abdomen and pelvis without contrast dated 03/19/17. FINDINGS: There are five non-rib bearing lumbar type vertebra. Mild levoconvex curvature of the lower thoracic and lumbar portions of the spine identified centered at the L2 level. Early reversal of the normal lumbar lordosis is again suggested. Minor anterior wedging of T12 and L1, likely stable since the prior CT examination. The vertebral bodies are otherwise normal in alignment and height. No definite acute fracture. No lytic or blastic bone lesion. Mild multilevel degenerative end plate changes. Mild facet degenerative changes at the lower lumbar levels. Vascular calcifications are scattered within the lower pelvis and at the mid to lower abdominal level right of midline. IMPRESSION: 1. NO ACUTE FRACTURE NOR SUBLUXATION IDENTIFIED. MINOR ANTERIOR WEDGING OF T12 AND L1, NOT GROSSLY CHANGED SINCE 03/19/17. 2. MILD MULTILEVEL DEGENERATIVE CHANGES WITHIN THE LUMBAR SPINE. [facility]BER: [id number] [facility]
--- NOTE | 2018-06-18 10:05 | CT SCAN REPORT ---
EXAM: CT OF THE CERVICAL SPINE WITHOUT CONTRAST HISTORY: HEAD AND NECK PAIN POST FALL. TECHNIQUE: Thin collimation helical CT examination of the cervical spine was performed in the axial plane without intravenous contrast. Coronal and sagittal reformatted images are generated and reviewed. Comparison: CT of the neck soft tissues dated 01/10/16. FINDINGS: There is normal bone mineralization. There is straightening of the normal cervical lordosis likely due to positioning or muscle spasm. The vertebral bodies are otherwise normal in alignment and height. No convincing acute fracture, destructive bone lesion, nor prevertebral soft tissue swelling. Minor multilevel degenerative disk changes are suggested most pronounced at the C5-C6 level. No gross osseous cervical spinal stenosis. The uncovertebral joints and facet joints are maintained. The neural foramina are grossly patent. There is mild dependent atelectasis within the upper lungs. No definite cervical mass nor adenopathy. Post surgical changes are noted in the visualized right orbit. Dental caries scattered throughout multiple teeth. Minor mucosal thickening in the floor of the right maxillary sinus. IMPRESSION: 1. NO ACUTE FRACTURE, SUBLUXATION OR PREVERTEBRAL SOFT TISSUE SWELLING. 2. MILD DEGENERATIVE CHANGES SCATTERED THROUGHOUT THE CERVICAL SPINE. JOB NUMBER: [id number] [facility]
== END 2018-06-16 19:27 | disposition home or self-care (01) ==
LOC: ER 18:03
DX: S06.0X0A Concussion without loss of consciousness, initial encounter (principal); S16.1XXA Strain of muscle, fascia and tendon at neck level, initial encounter; S50.312A Abrasion of left elbow, initial encounter; S50.311A Abrasion of right elbow, initial encounter; M54.5 Low back pain; W10.9XXA Fall (on) (from) unspecified stairs and steps, initial encounter; Y92.009 Unspecified place in unspecified non-institutional (private) residence as the place of occurrence of the external cause; F17.210 Nicotine dependence, cigarettes, uncomplicated
CPT/HCPCS: 70450; 72110; 72125; 99283; 99284

== ENCOUNTER 2018-09-14 15:35 | Emergency (ER) | payer BC ==
[2018-09-14] MEDS ORDERED: THROMBIN/GELATIN FOAM HEMOSTAT (THROMBI-GEL) TP ONE (16:00)
[2018-09-14] MEDS ORDERED: TOPICAL LIDOCAINE W/ EPI 5 ML TOP ONE (16:01)
--- NOTE | 2018-09-14 16:12 | Emergency Department Record ---
History of Present Illness - General Chief Complaint: Laceration(s) Stated Complaint: LT THUMB LAC Time Seen by Provider: 09/14/18 15:55 Source: Patient Mode of Arrival: Ambulatory Limitations: No limitations - History of Present Illness Initial Commments: 48 yo female presents with an injury to the left thumb. She was clearing glass that had a broken edge and cut the pad of her thumb. She states her tetanus shot was very recent. The skin in the area injured is gone. Onset/Timin -: Minutes(s) Extremity Location: Left: Hand (thumb) Place: Home Context: Accidental Associated Symptoms: None - [place] Coma Scale Eye Response: (4) Open spontaneously Motor Response: (6) Obeys commands Verbal Response: (5) Oriented [place] Total: 15 - Related Data Hx Tetanus Toxoid Vaccination: Yes Year of Tetanus Vaccination: 2017 Patient Tetanus UTD (within 5 yrs): Yes Previous Rx's Medication Instructions Recorded Ondansetron [Zofran Odt] 4 mg PO Q8H #12 tab.rapdis 06/16/18 Silver Sulfadiazine [Ssd] 1 apply TP TID #25 gm 06/16/18 Allergies Allergy/AdvReac Type Severity Reaction Status Date / Time amoxicillin AdvReac NAUSEA Verified 09/14/18 15:40 Travel Screening - Travel/Exposure Within Last 30 Days Have you traveled within the last 30 days?: No Review of Systems Constitutional: Denies: Chills, Fever, Malaise, Weakness Eyes: Denies: Eye discharge ENT: Denies: Congestion, Throat pain Respiratory: Denies: Cough Cardiovascular: Denies: Chest pain, Syncope Endocrine: Denies: Fatigue Gastrointestinal: Denies: Abdominal pain, Diarrhea, Nausea, Vomiting Musculoskeletal: Reports: Other. Denies: Arthralgia, Back pain, Joint swelling, Myalgia Skin: Reports: As per HPI, Other Neurological: Denies: Headache Psychiatric: Denies: Anxiety Hematological/Lymphatic: Denies: Easy bleeding, Easy bruising Past Medical History - SOCIAL HISTORY Smoking Status: Former smoker Alcohol Use: None Drug Use: None - RESPIRATORY Hx Respiratory Disorders: No - CARDIOVASCULAR Hx Cardio Disorders: Yes Hx Hypertension: Yes Hx Irregular Heartbeat: Yes (fast) - NEURO Hx Neuro Disorders: Yes Hx Headaches: Yes - GI Hx GI Disorders: Yes Hx Diverticulitis: Yes - Hx Genitourinary Disorders: No - ENDOCRINE Hx Endocrine Disorders: Yes Hx Thyroid Disease: Yes (hypo) - MUSCULOSKELETAL Hx Musculoskeletal Disorders: No - PSYCH Hx Psych Problems: Yes Hx Anxiety: Yes Hx Depression: Yes - HEMATOLOGY/ONCOLOGY Hx Hematology/Oncology Disorders: No Family Medical History Any Significant Family History?: Yes Hx Anxiety: Mother Hx Cancer: Father Hx Depression: Mother Hx Heart Disease: Mother, Grandparents Hx HTN: Grandparents Hx Stroke: Grandparents Physical Exam - General General Appearance: Alert, Oriented x3, Cooperative, No acute distress Limitations: No limitations - Head Head exam: Atraumatic, Normal inspection - Eye Eye exam: Normal appearance. negative: Conjunctival injection - ENT ENT exam: Normal exam Ear exam: Normal external inspection Nasal Exam: Normal inspection Mouth exam: Normal external inspection - Neck Neck exam: Normal inspection - Cardiovascular Peripheral Pulses: 2+: Radial (L) - Extremities Extremities exam: Normal capillary refill. negative: Normal inspection Image of Finger Tip: 1 - 6mm x 6mm superficail avulsed skin - Neurological Neurological exam: Alert, Oriented X3 - Psychiatric Psychiatric exam: Normal affect, Normal mood - Skin Skin exam: Other (skin avulsion) Course Vital Signs 09/14/18 15:42 Temperature 99.0 F Pulse Rate 110 H Respiratory 18 Rate Blood Pressure 123/86 Pulse Ox 97 - Reevaluation(s) Reevaluation #1: 09/14/18 16:40 The wound was cleaned and dried The skin avulsion continues to ooze mildly so a thrombi gel was placed The wound was rechecked after 25 minutes The bleeding stopped A non stick dressing with a protective dressing was applied. We discussed home care, follow up and reasons to return Disposition Disposition: Discharge Clinical Impression: Avulsion of skin Disposition: Home, Self-Care Condition: (1) Good Instructions: Skin Avulsion (ED) Additional Instructions: Leave the dressing on 48 hours then gently rinse off the pad You may then clean the wound daily and apply a very thin layer of antibiotic ointment and cover with a bandaide It might take 2-3 weeks for the skin to heal over Forms: Patient Portal Access Time of Disposition: 16:41 Quality - Quality Measures Quality Measures: N/A - Blood Pressure Screening Does Patient Have Any of the Following: No Blood Pressure Classification: Pre-Hypertensive BP Reading Systolic Measurement: 123 Diastolic Measurement: 86 Screening for High Blood Pressure: < Pre-Hypertensive BP, F/U Documented > [G8950] Pre-Hypertensive Follow-up Interventions: Referral to alternative/primary care provider.
== END 2018-09-14 16:50 | disposition home or self-care (01) ==
LOC: ER 15:35
DX: S61.012A Laceration without foreign body of left thumb without damage to nail, initial encounter (principal); W25.XXXA Contact with sharp glass, initial encounter; Y92.009 Unspecified place in unspecified non-institutional (private) residence as the place of occurrence of the external cause; I10 Essential (primary) hypertension; F17.210 Nicotine dependence, cigarettes, uncomplicated
CPT/HCPCS: 99283